=== PATIENT | female | born 1965 | race Caucasian/White ===

== ENCOUNTER 2018-08-10 19:52 | Inpatient (IN) | payer BC, SELFPAY ==
[2018-08-10] MEDS ORDERED: Propofol 1,000 MG/100 ML VIAL IV ONE (20:00)
[2018-08-10] MEDS ORDERED: fentaNYL Citrate/PF 2,000 MCG in Sodium Chloride 0.9% 60 ML IV SCH ×2 (20:02→21:30)
[2018-08-10] MEDS ORDERED: Dexamethasone 10 MG/ML VIAL ONE (20:11)
[2018-08-10 20:20] LABS: #Basophils 0.1 thou/uL (0.0-0.2); #Eosinphils 0.2 thou/uL (0.0-0.7); #Monocytes 0.8 thou/uL (0.11-0.59); #Neutrophils 3.7 thou/uL (1.40-6.50); %Basophils 0.8 % (0.0-1.0); %Eosinophils 2.3 % (0.0-10.0); %Lymphocytes 45.6 % (21.0-51.0); %Monocytes 9.3 % (0.0-10.0); Mean Corpuscular HGB CONC 32.5 g/dL (32.0-36.0); Mean Corpuscular Hemoglobin 29.7 pg (27.0-31.0); Mean Corpuscular Volume 91.6 fL (78.0-98.0); Mean Platelet Volume 8.2 fL (7.4-10.4); Platelet Count 266 thou/uL (130-400); RBC Distribution Width 12.8 % (11.5-14.5); Red Blood Cell (RBC) Count 4.38 mill/uL (4.20-5.40); White Blood Cell (WBC) Count 8.8 thou/uL (4.8-10.8)
--- NOTE | 2018-08-10 20:22 | RAD ---
PORTABLE CHEST: History: 53-year-old female with dyspnea. FINDINGS: Endotracheal tube and NG tubes have been placed in satisfactory location. Heart size is normal. The l ungs are clear. IMPRESSION: NG tube and endotracheal tubes in satisfactory location. No acute intrathoracic disease. POS: [facility]
[2018-08-10 20:29] LABS: Actual Bicarbonate (HCO3a) 21.3 mEq/L (22-28); Analyzer IN Cardio ER; Base Excess (BEa) -7.8 mEq/L (-2.0 to +3.0); CO2 Tension 59.2 mmHg (35.0-45.0); Calcium, Ionized 1.15 mmol/L (1.12-1.30); Carboxyhemoglobin (COHb) 1.2 gm% (0.0-3.0); Hemoglobin (Hb) 13.2 g/dL (12.0-16.0); Potassium - ABG Lab 3.85 mmol/L (3.70-5.30)
[2018-08-10] MEDS ORDERED: Albuterol Sulfate 2.5 mg/3 ml Neb ONE (20:34)
[2018-08-10] MEDS ORDERED: Albuterol Sulfate 2.5 mg/0.5 ml Neb ONE (20:34)
[2018-08-10 20:40] LABS: ALT (SGPT) 48 U/L (8-55); AST (SGOT) 62 U/L (5-34); Albumin 3.5 g/dL (3.5-5.0); Alkaline Phosphatase 123 U/L (40-150); Anion Gap 17 mmol/L (10-20); BUN (Urea Nitrogen) 24 mg/dL (9.8-20.1); Bilirubin, Total 0.3 mg/dL (0.2-1.2); CK (CPK) 185 U/L (29-168); Calc. Creatinine Clearance 0 mL/min (70-130); Calcium 8.6 mg/dL (7.8-10.44); Carbon Dioxide 19 mmol/L (22-29); Chloride 109 mmol/L (98-107); Estimated GFR-MDRD 49; Globulin 2.6 g/dL (2.4-3.5); Lipase 52 U/L (8-78); Potassium 3.9 mmol/L (3.5-5.1); Protein, Total 6.1 g/dL (6.0-8.3); Sodium 141 mmol/L (136-145)
[2018-08-10 20:40] LABS: Bilirubin Negative (Negative); Blood, Urine Negative (Negative); Clarity CLEAR (Clear); Glucose, Urine (Dipstick) Negative (Negative); Leukocyte Negative (Negative); Nitrite Negative (Negative); Protein, Urine (Dipstick) 30 mg/dL (Neg-Trace); Specific Gravity, Urine 1.022 (1.002-1.036); pH, Urine 5.5 (5.0-9.0)
[2018-08-10 20:43] LABS: Bacteria/HPF None Seen HPF (None Seen); Hyaline Casts/LPF 4-6 HYALINE CAST LPF (0-3 Hyaline); Pathc Cast-AUWi Flag 1.16 (0-2.49); RBC/HPF 0-3 HPF (0-3); Squamous Epithelial 0-3 HPF (0-3); WBC/HPF None Seen HPF (0-3)
[2018-08-10 20:44] LABS: Glucose 182 mg/dL (70-105)
[2018-08-10 20:45] LABS: O2 Tension (PaO2) 543.8 mmHg (80.0-100.0); Puncture Site LRA; pH, Arterial 7.17 (7.35-7.45)
[2018-08-10] MEDS ORDERED: CCU Electrolyte Replacement 1 EACH IVPB SCH (21:13)
[2018-08-10] MEDS ORDERED: Norepinephrine 8 MG/0.9% NS 250 ML IVPB PRN (21:13)
[2018-08-10] MEDS ORDERED: Ondansetron ODT 4 MG TAB PO PRN (21:13)
[2018-08-10] MEDS ORDERED: Acetaminophen 650 MG Suppository PR PRN (21:13)
[2018-08-10] MEDS ORDERED: Ondansetron PF 4 MG/2 ML Vial IVP PRN (21:13)
[2018-08-10] MEDS ORDERED: Ventilator Sedation Protocol 1 EACH FS SCH (21:15)
[2018-08-10] MEDS ORDERED: Potassium Phosphate 12 MMOL in Sodium Chloride 0.9% 250 ML 250 ML IV PRN (21:30)
[2018-08-10] MEDS ORDERED: Fentanyl BOLUS 250 ML IVPB PRN (21:30)
[2018-08-10] MEDS ORDERED: DISCONTINUE PREVIOUS NARCOTIC PAIN MEDICATIONS AND BENZODIAZEPINES FS SCH (21:30)
[2018-08-10] MEDS ORDERED: CCU ELECTROLYTE REPLACEMENT PROTOCOL FS PRN (21:30)
[2018-08-10] MEDS ORDERED: Potassium Chloride 20 MEQ TAB PO PRN (21:30)
[2018-08-10] MEDS ORDERED: Potassium Phosphate 15 MMOL in Sodium Chloride 0.9% 250 ML 250 ML IV PRN (21:30)
[2018-08-10] MEDS ORDERED: Potassium Chloride 40 MEQ in Sodium Chloride 0.9% 250 ML 250 ML IVPB PRN (21:30)
[2018-08-10] MEDS ORDERED: Lorazepam 2 MG/ML VIAL SLOW IVP PRN (21:30)
[2018-08-10] MEDS ORDERED: Potassium Chloride 40 MEQ in Premix Bag 1 BAG IVPB PRN (21:30)
[2018-08-10] MEDS ORDERED: Potassium Phosphate 9 MMOL in Sodium Chloride 0.9% 100 ML IVPB PRN (21:30)
[2018-08-10] MEDS ORDERED: Magnesium Oxide 400 MG TAB PO PRN ×2 (21:30)
[2018-08-10] MEDS ORDERED: Magnesium 2 GM/NS 0.9% 100 ML 2 GM in Premix Bag 1 BAG IVPB PRN (21:30)
[2018-08-10] MEDS ORDERED: Propofol BOLUS 1,000 MG/100 ML VIAL IV PRN (21:30)
[2018-08-10] MEDS ORDERED: Morphine 2 MG/ML SYRINGE SLOW IVP PRN (21:30)
[2018-08-10 22:59] VITALS: BMI 36.6
[2018-08-10] MEDS: Albuterol Sulfate 2.5 mg/3 ml Neb NEB SCH (23:44)
[2018-08-10] MEDS: Ipratropium Bromide 2.5 ml Neb NEB SCH (23:45)
[2018-08-11] MEDS: Sodium Chloride 0.9% 1,000 ML IV SCH ×2 (00:05→08:27)
[2018-08-11] MEDS: Propofol 1,000 MG/100 ML VIAL IV PRN ×3 (00:05→07:04)
[2018-08-11 00:22] LABS: Lactic Acid 2.3 mmol/L (0.5-2.2)
[2018-08-11 04:09] LABS: #Lymphocytes 0.2 thou/uL (1.20-3.40); #Neutrophils 4.6 thou/uL (1.40-6.50); %Basophils 0.8 % (0.0-1.0); %Eosinophils 0.2 % (0.0-10.0); %Lymphocytes 4.6 % (21.0-51.0); %Monocytes 0.7 % (0.0-10.0); %Neutrophils 93.7 % (42.0-75.0); Hemoglobin 12.3 g/dL (12.0-16.0); Mean Corpuscular HGB CONC 32.8 g/dL (32.0-36.0); Mean Corpuscular Hemoglobin 29.6 pg (27.0-31.0); Mean Corpuscular Volume 90.1 fL (78.0-98.0); Mean Platelet Volume 8.4 fL (7.4-10.4); Platelet Count 162 thou/uL (130-400); RBC Distribution Width 12.8 % (11.5-14.5); Red Blood Cell (RBC) Count 4.16 mill/uL (4.20-5.40); White Blood Cell (WBC) Count 4.9 thou/uL (4.8-10.8)
[2018-08-11 04:24] LABS: Anion Gap 13 mmol/L (10-20); BUN (Urea Nitrogen) 23 mg/dL (9.8-20.1); Calc. Creatinine Clearance 106 mL/min (70-130); Carbon Dioxide 19 mmol/L (22-29); Chloride 112 mmol/L (98-107); Estimated GFR-MDRD 61; Glucose 183 mg/dL (70-105); Potassium 3.7 mmol/L (3.5-5.1); Sodium 140 mmol/L (136-145)
[2018-08-11] MEDS: Albuterol Sulfate 2.5 mg/3 ml Neb NEB SCH (06:21)
[2018-08-11] MEDS: Ipratropium Bromide 2.5 ml Neb NEB SCH (06:23)
[2018-08-11 06:39] LABS: Base Excess (BEa) -4.3 mEq/L (-2.0 to +3.0); CO2 Tension 34.2 mmHg (35.0-45.0); Calcium, Ionized 1.12 mmol/L (1.12-1.30); Carboxyhemoglobin (COHb) 0.3 gm% (0.0-3.0); Hemoglobin (Hb) 12.6 g/dL (12.0-16.0); O2 Tension (PaO2) 99.8 mmHg (80.0-100.0); Potassium - ABG Lab 3.92 mmol/L (3.70-5.30); pH, Arterial 7.39 (7.35-7.45)
[2018-08-11 07:31] LABS: Puncture Site RRA
--- NOTE | 2018-08-11 07:41 | HP ---
CHIEF COMPLAINT: Shortness of breath. HISTORY OF PRESENT ILLNESS: This is a 53-year-old female with past medical history of asthma, presenting with respiratory failure. Per EMS, the patient was found in a tripod position, and the patient was having difficulty with her breathing, DuoNeb treatments were administered with no relief. The patient was then intubated on the scene, and the patient was brought to our ED to be further evaluated and managed. When the patient arrived in our ED, ET tube was replaced and the patient was then put on the vent and the patient was sent to the ICU. REVIEW OF SYSTEMS: Unable to be obtained since the patient is intubated. PAST MEDICAL HISTORY: Unable to be obtained since the patient is intubated, but it is noted that the patient has history of asthma. FAMILY HISTORY: Unable to be obtained since the patient is intubated. PAST SURGICAL HISTORY: Unable to be obtained since the patient is intubated. PSYCHIATRIC HISTORY: Unable to be obtained since the patient is intubated. SOCIAL HISTORY: Unable to be obtained since the patient is intubated. ALLERGIES: NO KNOWN DRUG ALLERGIES, BUT THE INFORMATION CANNOT BE OBTAINED AT THIS TIME SINCE THE PATIENT IS INTUBATED. CURRENT MEDICATIONS: Unable to be obtained since the patient is intubated. PHYSICAL EXAMINATION: VITAL SIGNS: The patient's blood pressure is 136/85, pulse of 115, respiratory rate of 20, temperature of 97.5, oxygen saturation of 97% on ventilator. GENERAL: The patient is lying in bed, sedated. GCS of 70. HEENT: Normocephalic, atraumatic. Pupils are equally round and reactive to light. The patient does have pinpoint pupils. Mouth; the patient does have an ET tube going through her mouth. NECK: Trachea is midline. No JVD is noted. LUNGS: The patient does have a ventilated lung sound that can be appreciated at the anterior lung estrada. The patient does not have any wheezes noted. CARDIAC: Positive S1 and S2. Tachycardic. ABDOMEN: Soft, nontender, and nondistended. No abdominal masses palpated. EXTREMITIES: Upper extremities, the patient is not able to move upper extremities, but however, has good pulses, and the patient withdraws to pain. For lower extremities, the patient does not have any edema. The patient has good pulses at the dorsalis pedis, and the patient withdraws to pain. NEUROLOGIC: The patient is sedated and intubated. GCS of 70. SKIN: Warm, dry and intact. DIAGNOSTIC DATA: EKG that was done showed sinus tachycardia with a rate of 129. Chest x-ray showed negative for infiltrates or pneumothorax. The patient has an ET tube that is in good position. LABORATORY DATA: WBC is 8.8, hemoglobin is 13.0, hematocrit is 40.2, platelet count is 266. ABGs, pH is 7.17, pCO2 is 69.2, pO2 is 543. Electrolytes; sodium is 141, potassium is 3.9, chloride is 109, carbon dioxide of 19, anion gap of 17, BUN is 24, creatinine is 1.17. Lactic acid of 2.3. Glucose of 182. Creatine kinase is 185. Urinalysis is negative. ASSESSMENT AND PLAN: This is a 53-year-old female being admitted for, 1. Acute respiratory failure secondary to asthma exacerbation. At this point, the patient has been intubated. The patient is getting oxygenation. We will follow up with the patient's ABGs in the a.m. We have consulted Pulmonology. We will also follow up with Pulmonology regarding any further recommendations. We will continue the patient on DuoNeb treatments. 2. Acute renal failure likely due to dehydration. The patient does have a creatinine of 1.17. The patient's baseline is less than 1. At this point, we are going to give the patient gentle hydration. We will follow up morning labs. 3. Deep vein thrombosis/gastrointestinal prophylaxis. Job ID: [id number]
--- NOTE | 2018-08-11 08:15 | RAD ---
PORTABLE CHEST: Date: 08-11-18 Provided Clinical History: Respiratory insufficiency. FINDINGS: Comparison is made with the study dated 08-10-18. Significant interval change with respect to the susana or examination is not apparent. IMPRESSION: As above. POS: [facility]
[2018-08-11] MEDS: Enoxaparin Sodium 40 MG/0.4 ML SYRINGE SC SCH (08:26)
--- NOTE | 2018-08-11 08:50 | RAD ---
CHEST 1 VIEW: Date: 08/10/18 HISTORY: Ventilated patient. COMPARISON: Radiograph from same date. FINDINGS: Patient is intubated with endotracheal tube tip in good position 4.0 cm below the clavicles. Enteric tube tip in good position. Lungs are clear. No pneumothorax or effusion. IMPRESSION: Satisfactory positioning of the endotracheal and enteric tubes. POS: [facility]
[2018-08-11] MEDS ORDERED: Famotidine 20 MG TAB PO SCH (09:00)
[2018-08-11] MEDS ORDERED: Famotidine/PF 20 mg/2ml Vial SLOW IVP SCH (09:00)
[2018-08-11] MEDS ORDERED: predniSONE 20 MG TAB PO SCH (09:30)
[2018-08-11] MEDS ORDERED: Albuterol Sulfate 2.5 mg/3 ml Neb NEB PRN (09:34)
--- NOTE | 2018-08-11 11:55 | PRG ---
DATE OF SERVICE: 08/11/2018 SUBJECTIVE: The patient is seen and examined at bedside. She is in the ICU 7. She is intubated. She is sedated. OBJECTIVE: VITAL SIGNS: Blood pressure is 108/64, pulse is 60, respiratory rate is 20, and O2 saturation is 96%. LUNGS: Minimal wheezes bilaterally with few crackles bilaterally, but she sounds quite clear. HEART: S1 and S2 normal. No S3. No S4. ABDOMEN: Soft, nontender, and nondistended. EXTREMITIES: No clubbing, cyanosis, or edema. NEUROLOGIC: Examination postponed since she is sedated. LABORATORY DATA: Showed white count of 4.9, hemoglobin 12.3, hematocrit 37.5, and platelet count is 162,000. Sodium of 140, potassium 3.7, chloride 112, CO2 of 19, BUN 23, creatinine 0.96, glucose 183, and calcium 8.0. Microbiology, two blood cultures, no growth so far, and influenza type A and B, direct EIA, final results negative. IMPRESSION: 1. Acute respiratory failure secondary to asthma exacerbation, status post intubation, on mechanical ventilation at this point. Supervisor Plate Forming to make decision about her extubation today. For now, we will continue DuoNebs treatments. 2. Acute renal failure, likely due to dehydration, improved. Job ID: [id number]
--- NOTE | 2018-08-11 12:42 | CON ---
DATE OF CONSULTATION: 08/11/2018 SERVICE: Pulmonary Medicine. REASON FOR CONSULTATION: ICU patient, respiratory failure. HISTORY OF PRESENT ILLNESS: The patient is a very pleasant 53-year-old white female with past medical history significant for asthma. She was in her usual state of health until yesterday evening. Her was on his way home from work. He gave her phone call to tell her that he was coming home. At that point, she was not having any breathing difficulty. By the time, he got home 10 to 15 minutes later, EMS services were there, transporting the patient out of the home to the ICU. She had an abrupt onset of respiratory failure. This escalated to the point where she required mechanical intubation. I was told that she had extremely stiff lungs immediately following the procedure. She had hypercapnic and hypoxic respiratory failure. Overnight, she was given steroids and nebulized medications, and opened up very quickly. She does not relate any history of fevers, chills, nausea, vomiting, or sick contacts. She is currently wide awake on mechanical ventilation and is doing fairly well. PAST MEDICAL HISTORY: 1. Asthma. 2. Hypothyroidism. PAST SURGICAL HISTORY: Unknown. SOCIAL HISTORY: Unknown. FAMILY HISTORY: Unknown. ALLERGIES: NO KNOWN DRUG ALLERGIES BASED ON THE 'S RECOLLECTION. MEDICATIONS: List of her inpatient medications was reviewed. Multiple updates were made. REVIEW OF SYSTEMS: This cannot be obtained as the patient is currently intubated and sedated. PHYSICAL EXAMINATION: HEENT: Normocephalic and atraumatic. Sclerae white. Conjunctivae pink. Oral mucosa is moist without lesions. LUNGS: Decent air entry. There is a slightly prolonged expiratory phase, but she is moving fantastic here. There is a little bit of wheezing. I do not appreciate crackles or rhonchi. HEART: Normal rate regular. ABDOMEN: Soft, nontender, and nondistended. Bowel sounds are positive. MUSCULOSKELETAL: No cyanosis or clubbing. There is no pitting in the bilateral lower extremities. NEUROLOGIC: Grossly nonfocal. LABORATORY DATA: WBC 4.9, hemoglobin 12.3, and platelets 162,000. PH 7.39, pCO2 of 34, pO2 of 99, on FiO2 of 40%. Basic metabolic profile is essentially unremarkable other than a chloride of 112, which is up-trending. Bicarbonate is stable at 19 and anion gap has resolved. Original lactate was 4.1, but has improved to 2.3. Liver function studies are unremarkable. Troponin negative x1. Urinalysis is unremarkable. Influenza A and B are unremarkable, blood cultures x2 are negative. IMAGING DATA: Chest x-ray demonstrates no acute cardiopulmonary abnormality. Endotracheal tube is in good position. Enteric catheter courses below the level of the diaphragm. ASSESSMENT: 1. Acute hypercapnic respiratory failure. 2. Asthma with acute exacerbation. 3. Hypothyroidism. DISCUSSION AND PLAN: The patient is doing fine from respiratory standpoint. I will put her on a spontaneous breathing trial. If she meets criteria, extubation will be considered. Pulmonary/Critical Care will continue to follow while she remains in-house. If she extubated comfortably, we will transition most of her interventions over to p.o. and get her out of the ICU to the Medical Unit. We will continue to follow through the weekend. Ultimately, she will need a 14-day course of prednisone. I will have her follow up with me in the outpatient setting. Job ID: [id number]
[2018-08-11] MEDS: Acetaminophen 325 MG TAB PO PRN ×2 (13:50→19:06)
[2018-08-11] MEDS ORDERED: diphenhydrAMINE 50 MG/ML VIAL IVP SCH (14:15)
[2018-08-11] MEDS ORDERED: Metoclopramide HCl 10 MG/2 ML VIAL IVP SCH (14:15)
[2018-08-11] MEDS ORDERED: SUMAtriptan Succinate 25 MG TAB PO SCH (19:45)
[2018-08-12] MEDS: Levothyroxine Sodium 125 MCG TAB PO SCH (05:51)
[2018-08-12] MEDS: Enoxaparin Sodium 40 MG/0.4 ML SYRINGE SC SCH (08:46)
[2018-08-12] MEDS: predniSONE 20 MG TAB PO SCH (08:46)
--- NOTE | 2018-08-12 13:17 | EKG ---
Test Reason : Blood Pressure : / mmHG Vent. Rate : 129 BPM Atrial Rate : 129 BPM P-R Int : 134 ms QRS Dur : 074 ms QT Int : 308 ms P-R-T Axes : 073 045 052 degrees QTc Int : 451 ms Sinus tachycardia Nonspecific ST abnormality Abnormal ECG Confirmed by KALI GARDUNO, BARBARA ([id number]), non linear editor CARIDAD HODGSON ([id number]) on 08/12/2018 1:17:20 PM Referred By: Confirmed By:BARBARA BASS MD
[2018-08-12] MEDS: Benzonatate 100 MG CAP PO PRN ×3 (13:31→23:41)
--- NOTE | 2018-08-12 13:31 | PDOC.PN ---
- Subjective Encounter Start Date: 08/12/18 Encounter Start Time: 13:29 Subjective: feels much better but now has a dry cough -: denies any Chest pain or SOB -: extubated yesterday - Objective Resuscitation Status - Order Detail: 08/10/18 21:13 Resuscitation Status Routine Resuscitation Status: FULL: Full Resuscitation MAR Reviewed: Yes Vital Signs & Weight: Vital Signs (12 hours) Temp Pulse Resp BP Pulse Ox 08/12/18 13:17 86 16 08/12/18 08:00 97.4 F L 63 16 119/74 96 08/12/18 06:50 70 16 08/12/18 04:00 98.0 F 70 16 127/73 97 Weight Weight 213 lb 10.047 oz Most Recent Monitor Data Heart Rate from ECG 79 NIBP 170/109 NIBP BP-Mean 129 Respiration from ECG 16 SpO2 94 I&O: 08/11/18 08/12/18 08/13/18 06:59 06:59 06:59 Intake Total 889.7 2353 Output Total 1105 500 Balance -215.3 1853 Result Diagrams: 08/11/18 03:18 08/11/18 03:18 Additional Labs: Microbiology 08/10/18 21:12 Nasal swab Influenza Types A,B Direct EIA - Final 08/10/18 20:21 Venous blood - Left Hand Blood Culture - Preliminary Specimen has been received and culture in progress. No Growth to date. 08/10/18 20:05 Venous blood - Right Hand Blood Culture - Preliminary Coagulase Neg Staphylococcus Laboratory Tests 08/10/18 08/11/18 08/12/18 20:04 03:18 06:15 Creatinine 1.17 H 0.96 TSH 3rd Generation 0.0964 L Phys Exam - Physical Examination Constitutional: NAD HEENT: PERRLA, moist MMs, sclera anicteric, oral pharynx no lesions Neck: no nodes, no JVD, supple, full ROM Respiratory: no wheezing, no rales, no rhonchi, clear to auscultation bilateral Cardiovascular: RRR, no significant murmur, no rub Gastrointestinal: soft, non-tender, no distention, positive bowel sounds Musculoskeletal: no edema, pulses present Neurological: non-focal, normal sensation, moves all 4 limbs Psychiatric: normal affect, A&O x 3 Skin: no rash Dx/Plan (1) Acute respiratory failure with hypoxia Code(s): J96.01 - ACUTE RESPIRATORY FAILURE WITH HYPOXIA Status: Acute (2) Asthma exacerbation Code(s): J45.901 - UNSPECIFIED ASTHMA WITH (ACUTE) EXACERBATION Status: Acute (3) KIA (acute kidney injury) Code(s): N17.9 - ACUTE KIDNEY FAILURE, UNSPECIFIED Status: Acute (4) Lactic acid acidosis Code(s): E87.2 - ACIDOSIS Status: Acute Comment: Cx pending.Likley due to tissue hypoperfusion from hypoxia.less likley infection (5) Hypothyroid Code(s): E03.9 - HYPOTHYROIDISM, UNSPECIFIED Status: Chronic - Plan incentive spirometry, out of bed/ambulate, DVT proph w/SCDs clinically better & HD stable.on prednisone. -: add tessalon perals. -: monitor untill cleared by [facility]. -: cont levothyroxine * . Review of Systems - Review of Systems Constitutional: negative: fever, chills, sweats, weakness, malaise, other ENT: negative: Ear Pain, Ear Discharge, Nose Pain, Nose Discharge, Nose Congestion, Mouth Pain, Mouth Swelling, Throat Pain, Throat Swelling, Other Respiratory: Cough. negative: Dry, Shortness of Breath, Hemoptysis, SOB with Excertion, Pleuritic Pain, Sputum, Wheezing Cardiovascular: negative: chest pain, palpitations, orthopnea, paroxysmal nocturnal dyspnea, edema, light headedness, other Gastrointestinal: negative: Nausea, Vomiting, Abdominal Pain, Diarrhea, Constipation, Melena, Hematochezia, Other Genitourinary: negative: Dysuria, Frequency, Incontinence, Hematuria, Retention , Other Musculoskeletal: negative: Neck Pain, Shoulder Pain, Arm Pain, Back Pain, Hand Pain, Leg Pain, Foot Pain, Other Neurological: negative: Weakness, Numbness, Incoordination, Change in Speech, Confusion, Seizures, Other - Medications/Allergies Allergies/Adverse Reactions: Allergies Allergy/AdvReac Type Severity Reaction Status Date / Time weed pollen Allergy Verified 08/10/18 22:49 Medications: Current Medications Acetaminophen (Tylenol) 650 mg PO Q4H PRN PRN Reason: Headache/Fever/Mild Pain (1-3) Last Admin: 08/11/18 19:06 Dose: 650 mg Acetaminophen (Tylenol) 650 mg [place] Q4H PRN PRN Reason: Headache/Fever/Mild Pain (1-3) Albuterol Sulfate (Ventolin) 2.5 mg NEB [id number] PRN PRN Reason: Wheezing Albuterol/Ipratropium (Duoneb) 3 ml NEB [id number] [facility] Last Admin: 08/12/18 13:17 Dose: 3 ml Benzonatate (Tessalon) 100 mg PO Q4H PRN PRN Reason: Cough Enoxaparin Sodium (Lovenox) 40 mg SC 0900 [facility] Last Admin: 08/12/18 08:46 Dose: 40 mg Levothyroxine Sodium (Synthroid) 125 mcg PO 0600 [facility] Last Admin: 08/12/18 05:51 Dose: 125 mcg Ondansetron HCl (Zofran Odt) 4 mg PO Q6H PRN PRN Reason: Nausea/Vomiting Prednisone (Prednisone) 20 mg PO QA-[facility] Stop: 08/25/18 08:01 Last Admin: 08/12/18 08:46 Dose: 20 mg Sodium Chloride (Flush - Normal Saline) 10 ml IVF Q12HR PRN PRN Reason: Saline Flush Sodium Chloride (Flush - Normal Saline) 10 ml IVF PRN PRN PRN Reason: Saline Flush
--- NOTE | 2018-08-12 17:02 | PRG ---
DATE OF SERVICE: 08/12/2018 SUBJECTIVE: Ms. Burnette' history has been reviewed. She wants to go home. She was just extubated yesterday. She is familiar with peak flow meters. If so, she is not using one at home. She said she is ready to go home, but the nursing staff tells me that she cannot walk to the bathroom without getting extremely short of breath. I suspect we need more objective measurements of her pulmonary function before allowing her to go home since she required intubation when she came to the hospital. She should stay at least another 24 hours and review her peak flows prior to discharge. Job ID: [id number]
--- NOTE | 2018-08-12 17:12 | PRG ---
DATE OF SERVICE: 08/12/2018 ADDENDUM OBJECTIVE: VITAL SIGNS: Have been stable. She does not have resting tachycardia, arguing for significant improvement. Oximetry is 96% on room air. Respiratory rate 17. LUNGS: Remarkable for end-expiratory wheezes. She is still wheezing. HEART: Regular rhythm. ABDOMEN: Soft. IMPRESSION: Status asthmaticus leading to intubation. PLAN: Peak flow monitoring and re-evaluation for discharge tomorrow. Job ID: [id number]
[2018-08-13] MEDS: Levothyroxine Sodium 125 MCG TAB PO SCH (05:34)
[2018-08-13] MEDS: Enoxaparin Sodium 40 MG/0.4 ML SYRINGE SC SCH (08:09)
[2018-08-13] MEDS: predniSONE 20 MG TAB PO SCH (08:09)
[2018-08-13] MEDS: Acetaminophen 325 MG TAB PO PRN ×2 (08:11→20:19)
--- NOTE | 2018-08-13 11:13 | PDOC.PN ---
- Subjective Encounter Start Date: 08/13/18 Encounter Start Time: 11:11 Subjective: feels wheezy and SOb w walking -: no chest pain - Objective Resuscitation Status - Order Detail: 08/10/18 21:13 Resuscitation Status Routine Resuscitation Status: FULL: Full Resuscitation MAR Reviewed: Yes Vital Signs & Weight: Vital Signs (12 hours) Temp Pulse Resp BP BP Pulse Ox 08/13/18 08:55 97.6 F 63 18 130/73 95 08/13/18 08:06 97.6 F 63 18 130/73 95 08/13/18 08:00 95 08/13/18 07:31 67 16 08/13/18 04:00 98.5 F 62 12 122/76 98 08/13/18 00:54 76 16 95 08/13/18 00:00 98.7 F 67 12 107/62 98 Weight Weight 213 lb 10.047 oz Most Recent Monitor Data Heart Rate from ECG 79 NIBP 170/109 NIBP BP-Mean 129 Respiration from ECG 16 SpO2 94 I&O: 08/12/18 08/13/18 08/14/18 06:59 06:59 06:59 Intake Total 2353 660 Output Total 500 Balance 1853 660 Result Diagrams: 08/11/18 03:18 08/11/18 03:18 Additional Labs: Microbiology 08/10/18 21:12 Nasal swab Influenza Types A,B Direct EIA - Final 08/10/18 20:05 Venous blood - Right Hand Blood Culture - Final Coagulase Neg Staphylococcus 08/10/18 20:21 Venous blood - Left Hand Blood Culture - Preliminary NO GROWTH AT 48 HOURS Phys Exam - Physical Examination Constitutional: NAD HEENT: PERRLA, moist MMs, sclera anicteric, oral pharynx no lesions Neck: no nodes, no JVD, supple, full ROM Respiratory: no rales, no rhonchi, wheezing present Cardiovascular: RRR, no significant murmur Gastrointestinal: soft, non-tender, no distention, positive bowel sounds Musculoskeletal: no edema, pulses present Neurological: non-focal, normal sensation, moves all 4 limbs Psychiatric: normal affect, A&O x 3 Skin: no rash Dx/Plan (1) Asthma exacerbation Code(s): J45.901 - UNSPECIFIED ASTHMA WITH (ACUTE) EXACERBATION Status: Acute (2) Acute respiratory failure with hypoxia Code(s): J96.01 - ACUTE RESPIRATORY FAILURE WITH HYPOXIA Status: Resolved (3) KIA (acute kidney injury) Code(s): N17.9 - ACUTE KIDNEY FAILURE, UNSPECIFIED Status: Resolved (4) Lactic acid acidosis Code(s): E87.2 - ACIDOSIS Status: Acute Comment: Cx pending.Likley due to tissue hypoperfusion from hypoxia.less likley infection (5) Hypothyroid Code(s): E03.9 - HYPOTHYROIDISM, UNSPECIFIED Status: Chronic - Plan respiratory therapy, incentive spirometry, DVT proph w/lovenox, DVT proph w/SCDs pt educated extensively to avoid allergens.Accd to BF ,she has 12 cats -: add singulair.pt reports too expensive to afford even w insurance -: cont nebs.Peak flow measurements still lower than expected range -: encouraged for OP Pulm f/u -: cont nebs. stroids. doesn't seem ready for DC yet again * . Review of Systems - Review of Systems Constitutional: malaise. negative: fever, chills, sweats, weakness, other Respiratory: Cough, SOB with Excertion, Wheezing. negative: Dry, Shortness of Breath, Hemoptysis, Pleuritic Pain, Sputum Cardiovascular: negative: chest pain, palpitations, orthopnea, paroxysmal nocturnal dyspnea, edema, light headedness, other Gastrointestinal: negative: Nausea, Vomiting, Abdominal Pain, Diarrhea, Constipation, Melena, Hematochezia, Other Genitourinary: negative: Dysuria, Frequency, Incontinence, Hematuria, Retention , Other Neurological: negative: Weakness, Numbness, Incoordination, Change in Speech, Confusion, Seizures, Other - Medications/Allergies Allergies/Adverse Reactions: Allergies Allergy/AdvReac Type Severity Reaction Status Date / Time weed pollen Allergy Verified 08/10/18 22:49 Medications: Current Medications Acetaminophen (Tylenol) 650 mg PO Q4H PRN PRN Reason: Headache/Fever/Mild Pain (1-3) Last Admin: 08/13/18 08:11 Dose: 650 mg Acetaminophen (Tylenol) 650 mg MN Q4H PRN PRN Reason: Headache/Fever/Mild Pain (1-3) Albuterol Sulfate (Ventolin) 2.5 mg NEB [id number] PRN PRN Reason: Wheezing Albuterol/Ipratropium (Duoneb) 3 ml NEB [id number] [facility] Last Admin: 08/13/18 07:31 Dose: 3 ml Benzonatate (Tessalon) 100 mg PO Q4H PRN PRN Reason: Cough Last Admin: 08/12/18 23:41 Dose: 100 mg Enoxaparin Sodium (Lovenox) 40 mg SC 0900 [facility] Last Admin: 08/13/18 08:09 Dose: 40 mg Levothyroxine Sodium (Synthroid) 125 mcg PO 0600 [facility] Last Admin: 08/13/18 05:34 Dose: 125 mcg Mometasone Furoate/Formoterol Fumar (Dulera 200 Mcg/5 Mcg Inhaler) 1 puff INH BID-RT [facility] Montelukast Sodium (Singulair) 10 mg PO QPM [facility] Ondansetron HCl (Zofran Odt) 4 mg PO Q6H PRN PRN Reason: Nausea/Vomiting Prednisone (Prednisone) 20 mg PO QAM-WM [facility] Stop: 08/25/18 08:01 Last Admin: 08/13/18 08:09 Dose: 20 mg Sodium Chloride (Flush - Normal Saline) 10 ml IVF Q12HR PRN PRN Reason: Saline Flush Sodium Chloride (Flush - Normal Saline) 10 ml IVF PRN PRN PRN Reason: Saline Flush
[2018-08-13] MEDS ORDERED: predniSONE 20 MG TAB PO SCH (11:33)
[2018-08-13] MEDS ORDERED: Magnesium 2 GM/50 ML 2 GM in Premix Bag 1 BAG IVPB SCH (11:45)
[2018-08-13] MEDS ORDERED: methylPREDNISolone Sod Succ/PF 125 MG/2 ML VIAL IVP SCH (11:45)
[2018-08-13] MEDS: Mometasone/Formoterol 120 PUFF INHALER INH SCH ×2 (13:08→18:59)
[2018-08-13] MEDS ORDERED: Ondansetron PF 4 MG/2 ML Vial IVP PRN (13:22)
--- NOTE | 2018-08-13 14:09 | PRG ---
DATE OF SERVICE: 08/13/2018 SUBJECTIVE: Ms. Burnette's peak flows were only 150 today. Predicted peak flow for her based on age, sex and height is 360, with 80% being 288. She is only a 150 this morning. I have given her 2 g of Mag, another steroid bolus. Singulair was restarted today. She had stopped this as an outpatient. 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 Her lungs are marked for distant wheezes. Heart, regular rhythm. Abdomen is soft. She agreed to stay another day. Hopefully, we will see improvement overnight in her peak flows. Job ID: [id number]
[2018-08-13] MEDS ORDERED: Montelukast Sodium 10 mg Tablet PO SCH (21:00)
[2018-08-14] MEDS ORDERED: Calcium Carbonate 500 MG ChewTAB PO PRN (00:38)
[2018-08-14] MEDS: Levothyroxine Sodium 125 MCG TAB PO SCH (05:58)
[2018-08-14] MEDS: Benzonatate 100 MG CAP PO PRN ×2 (05:59→10:05)
[2018-08-14] MEDS: Mometasone/Formoterol 120 PUFF INHALER INH SCH (06:41)
[2018-08-14] MEDS ORDERED: predniSONE 20 MG TAB PO SCH (08:00)
[2018-08-14 08:02] VITALS: BP 128/70; TEMP 97.6
[2018-08-14] MEDS: Enoxaparin Sodium 40 MG/0.4 ML SYRINGE SC SCH (09:14)
--- NOTE | 2018-08-14 16:23 | PDOC.PN ---
- Subjective Encounter Start Date: 08/14/18 Encounter Start Time: 16:22 Subjective: feels back to baseline and eager to go home -: no SOB/CP.walking in hallways - Objective Resuscitation Status - Order Detail: 08/10/18 21:13 Resuscitation Status Routine Resuscitation Status: FULL: Full Resuscitation MAR Reviewed: Yes Vital Signs & Weight: Vital Signs (12 hours) Temp Pulse Resp BP Pulse Ox 08/14/18 13:39 105 H 18 98 08/14/18 08:00 97.6 F 67 18 128/70 93 L 08/14/18 06:41 68 16 96 08/14/18 06:40 68 16 96 Weight Weight 213 lb 10.047 oz Most Recent Monitor Data Heart Rate from ECG 79 NIBP 170/109 NIBP BP-Mean 129 Respiration from ECG 16 SpO2 94 I&O: 08/13/18 08/14/18 08/15/18 06:59 06:59 06:59 Intake Total 660 820 510 Balance 660 820 510 Result Diagrams: 08/11/18 03:18 08/11/18 03:18 Phys Exam - Physical Examination Constitutional: NAD HEENT: PERRLA, moist MMs, sclera anicteric, oral pharynx no lesions Neck: no nodes, no JVD, supple, full ROM Respiratory: no wheezing, no rales, no rhonchi, clear to auscultation bilateral Cardiovascular: RRR, no significant murmur, no rub Gastrointestinal: soft, non-tender, no distention, positive bowel sounds Musculoskeletal: no edema, pulses present, edema present Neurological: non-focal, normal sensation, moves all 4 limbs Psychiatric: normal affect, A&O x 3 Skin: no rash Dx/Plan (1) Asthma exacerbation Code(s): J45.901 - UNSPECIFIED ASTHMA WITH (ACUTE) EXACERBATION Status: Acute (2) Acute respiratory failure with hypoxia Code(s): J96.01 - ACUTE RESPIRATORY FAILURE WITH HYPOXIA Status: Resolved (3) KIA (acute kidney injury) Code(s): N17.9 - ACUTE KIDNEY FAILURE, UNSPECIFIED Status: Resolved (4) Lactic acid acidosis Code(s): E87.2 - ACIDOSIS Status: Acute Comment: Cx pending.Likley due to tissue hypoperfusion from hypoxia.less likley infection (5) Hypothyroid Code(s): E03.9 - HYPOTHYROIDISM, UNSPECIFIED Status: Chronic - Plan DVT proph w/SCDs ok to DC home on duoneb prn.medrol dose ilya and albuterol -: singulair added -: OP PCCM f/u * . Review of Systems - Review of Systems Constitutional: negative: fever, chills, sweats, weakness, malaise, other ENT: negative: Ear Pain, Ear Discharge, Nose Pain, Nose Discharge, Nose Congestion, Mouth Pain, Mouth Swelling, Throat Pain, Throat Swelling, Other Cardiovascular: negative: chest pain, palpitations, orthopnea, paroxysmal nocturnal dyspnea, edema, light headedness, other Gastrointestinal: negative: Nausea, Vomiting, Abdominal Pain, Diarrhea, Constipation, Melena, Hematochezia, Other Genitourinary: negative: Dysuria, Frequency, Incontinence, Hematuria, Retention , Other Musculoskeletal: negative: Neck Pain, Shoulder Pain, Arm Pain, Back Pain, Hand Pain, Leg Pain, Foot Pain, Other Neurological: negative: Weakness, Numbness, Incoordination, Change in Speech, Confusion, Seizures, Other - Medications/Allergies Allergies/Adverse Reactions: Allergies Allergy/AdvReac Type Severity Reaction Status Date / Time weed pollen Allergy Verified 08/10/18 22:49
== END 2018-08-14 16:17 | disposition home or self-care (01) | DRG 208 ==
LOC: ERS 19:52 → EDBD 19:52 → CCU 21:41 → ONC 08-11 18:35
PROVIDERS: ADMIT Internal Medicine; ATTEND Internal Medicine
PROC: 5A1935Z Respiratory Ventilation, Less than 24 Consecutive Hours (ICD-10-PCS; principal; 2018-08-10)
DX: J96.01 Acute respiratory failure with hypoxia (principal); J45.901 Unspecified asthma with (acute) exacerbation; N17.9 Acute kidney failure, unspecified; E87.2 Acidosis; J96.02 Acute respiratory failure with hypercapnia; E86.0 Dehydration; E03.9 Hypothyroidism, unspecified
CPT/HCPCS: 36415; 71045; 80048; 80053; 81003; 81015; 82550; 82805; 83605; 83690; 84443; 84484; 85025; 87040; 87149; 87804; 93005; 94002; 94003; 94664; J1100; J1200; J1650; J1956; J2704; J2765; J2920; J2930; J3010; J3370; J7050; J7506; J7611; J7620; S0028

== ENCOUNTER 2018-08-25 01:09 | Emergency (ER) | payer BC ==
[2018-08-25 01:52] LABS: Bilirubin Negative (Negative); Blood, Urine Small (Negative); Clarity CLEAR (Clear); Glucose, Urine (Dipstick) Negative (Negative); Leukocyte Small (Negative); Nitrite Negative (Negative); Protein, Urine (Dipstick) Negative (Neg-Trace); Urobilinogen 0.2 mg/dL (0.2-1.0)
[2018-08-25 01:54] LABS: Bacteria/HPF None Seen HPF (None Seen); Hyaline Casts/LPF 0-3 HYALINE CAST LPF (0-3 Hyaline); Pathc Cast-AUWi Flag 0.29 (0-2.49); Squamous Epithelial 0-3 HPF (0-3)
[2018-08-25 02:38] LABS: #Eosinphils 0.1 thou/uL (0.0-0.7); #Lymphocytes 1.6 thou/uL (1.20-3.40); #Monocytes 0.6 thou/uL (0.11-0.59); #Neutrophils 2.4 thou/uL (1.40-6.50); %Basophils 0.8 % (0.0-1.0); %Eosinophils 2.1 % (0.0-10.0); %Lymphocytes 33.5 % (21.0-51.0); %Monocytes 12.7 % (0.0-10.0); %Neutrophils 50.9 % (42.0-75.0); Hemoglobin 12.4 g/dL (12.0-16.0); Mean Corpuscular HGB CONC 33.4 g/dL (32.0-36.0); Mean Corpuscular Hemoglobin 29.9 pg (27.0-31.0); Mean Corpuscular Volume 89.5 fL (78.0-98.0); Mean Platelet Volume 7.6 fL (7.4-10.4); Platelet Count 152 thou/uL (130-400); RBC Distribution Width 12.7 % (11.5-14.5); Red Blood Cell (RBC) Count 4.14 mill/uL (4.20-5.40); White Blood Cell (WBC) Count 4.7 thou/uL (4.8-10.8)
[2018-08-25 03:01] LABS: ALT (SGPT) 18 U/L (8-55); AST (SGOT) 14 U/L (5-34); Albumin 3.5 g/dL (3.5-5.0); Alkaline Phosphatase 71 U/L (40-150); Anion Gap 12 mmol/L (10-20); BUN (Urea Nitrogen) 21 mg/dL (9.8-20.1); Bilirubin, Total 0.3 mg/dL (0.2-1.2); Calc. Creatinine Clearance 0 mL/min (70-130); Calcium 8.8 mg/dL (7.8-10.44); Carbon Dioxide 26 mmol/L (22-29); Chloride 107 mmol/L (98-107); Estimated GFR-MDRD 73; Globulin 2.6 g/dL (2.4-3.5); Glucose 101 mg/dL (70-105); Potassium 3.7 mmol/L (3.5-5.1); Protein, Total 6.1 g/dL (6.0-8.3); Sodium 141 mmol/L (136-145)
[2018-08-25] MEDS ORDERED: Ketorolac Tromethamine 60 MG/2 ML VIAL ONE (03:34)
--- NOTE | 2018-08-25 08:23 | CT ---
PRELIMINARY REPORT/[facility]/EMERGENTY AFTER-HOURS PROCEDURE CT Abdomen and Pelvis With Contrast EXAM DATE/TIME: 08/25/2018 2:45 AM CLINICAL HISTORY: 53 years old, female; Pain; Abdominal pain; Flank; Other: Bilateral; Prior surgery; Patient HX: Er 2; Patient presents to ed with hematuria since kushal and bilateral flank pain. Recently hospitalize d for upper respiratory complaint and patient states that she has had a rincon in place. Patient with history of utis however says that she does not usually get symptoms so she never knows when she has t hem. Denies fever at home. No other symptoms. Surgical history of section, surgical history of hysterectomy. TECHNIQUE: Axial computed tomography images of the abdomen and pelvis with intravenous contrast. Coronal reformatted images were created and reviewed. COMPARISON: No relevant prior studies available. FINDINGS: Lower thorax: The lung bases are clear. Possible very small hiatal hernia. There may be some mucosal/wall thickening involving the lower esophagus. This is nonspecific, but cou ld represent evidence for esophagitis. Please correlate clinically. ABDOMEN: Liver: Unremarkable. Gallbladder and bile ducts: No definite gallbladder abnormality by CT. No biliary tree dilation. Pancreas: Unremarkable. Spleen: The spleen appears mildly enlarged with a length of 13-14 cm. No definite focal abnormality o r perisplenic fluid. Adrenals: Unremarkable. Kidneys and ureters: No hydronephrosis of either kidney. No visible renal or ureteral calculus. No pe rinephric fluid. No visible renal mass. Stomach and bowel: Possibility of slightly thickened mucosa/wall in the distal antrum of the stomach. This is a nonspecific appearance, and could well be transient on CT, but could also represent eviden ce for gastritis or peptic ulcer disease. Please correlate clinically. There are no CT findings to strongly suggest diverticulitis. Appendix: The appendix is visualized and appears normal. PELVIS: Bladder: Urinary bladder appears essentially unremarkable by CT. Reproductive: Prior hysterectomy. ABDOMEN and PELVIS: Intraperitoneal space: No free air, ascites, or bowel distention. No abnormal mass or fluid collection in the pelvis. Bones/joints: No significant acute finding. Soft tissues: No significant acute finding. Vasculature: No evidence for abdominal aortic aneurysm. Lymph nodes: No retroperitoneal adenopathy. IMPRESSION: 1. No hydronephrosis of either kidney. No visible renal or ureteral calculus. No renal mass. 2. No free air or bowel distention. 3. Possible thickened mucosa/wall in the distal stomach, see above discussion. 4. Mild splenomegaly, details above. 5. Normal appendix. 6. Possible very small hiatal hernia. 7. Possibly some thickening of the lower esophagus, see above discussion. 8. Other findings discussed above. Thank you for allowing us to participate in the care of your patient. Dictated and Authenticated by: Fabian Canseco MD 08/25/2018 4:20 AM Central Time ([place] & [place]) FINAL REPORT CT ABDOMEN AND PELVIS WITH IV CONTRAST: Date: 08-25-18 Performed on emergency basis at 0246 hours. History: Abdominal pain. FINDINGS: I agree with the preliminary report by Dr. Canseco from [facility]. Non-distention of the stomac h with villalpando that are slightly thickened. Nonspecific finding. Small hiatal hernia. Code QA. POS: [facility]
== END 2018-08-25 04:49 | disposition home or self-care (01) ==
LOC: ERS 01:09
DX: N30.00 Acute cystitis without hematuria (principal); K29.00 Acute gastritis without bleeding; K20.9 Esophagitis, unspecified; J45.909 Unspecified asthma, uncomplicated; E06.3 Autoimmune thyroiditis; F41.9 Anxiety disorder, unspecified; Z87.891 Personal history of nicotine dependence
CPT/HCPCS: 36415; 74177; 80053; 81003; 81015; 85025; 96372; J1885

== ENCOUNTER 2018-12-18 07:45 | Observation (INO) | payer BC ==
[2018-12-18] MEDS ORDERED: Magnesium 2 GM/50 ML BAG (IN WATER) ONE (08:02)
--- NOTE | 2018-12-18 08:08 | RAD ---
EXAM: CHEST ONE VIEW HISTORY: Cough COMPARISON: 08/11/2018 FINDINGS: The cardiac silhouette and pulmonary vasculature is within normal limits. The lungs are clear. The os seous structures are intact. Endotracheal and nasogastric tubes have been removed when compared to prior study. IMPRESSION: No acute cardiopulmonary process.
[2018-12-18] MEDS ORDERED: Albuterol Sulfate 2.5 mg/0.5 ml Neb ONE (08:20)
[2018-12-18] MEDS ORDERED: Albuterol Sulfate 2.5 mg/3 ml Neb ONE (08:20)
[2018-12-18 08:21] LABS: #Basophils 0.1 thou/uL (0.0-0.2); #Eosinphils 0.3 thou/uL (0.0-0.7); #Lymphocytes 1.6 thou/uL (1.20-3.40); #Monocytes 0.5 thou/uL (0.11-0.59); %Basophils 1.6 % (0.0-1.0); %Eosinophils 6.6 % (0.0-10.0); %Lymphocytes 35.6 % (21.0-51.0); %Monocytes 10.5 % (0.0-10.0); %Neutrophils 45.8 % (42.0-75.0); Hemoglobin 12.7 g/dL (12.0-16.0); Mean Corpuscular HGB CONC 32.8 g/dL (32.0-36.0); Mean Corpuscular Volume 88.4 fL (78.0-98.0); Mean Platelet Volume 8.2 fL (7.4-10.4); Platelet Count 185 thou/uL (130-400); RBC Distribution Width 13.1 % (11.5-14.5); Red Blood Cell (RBC) Count 4.39 mill/uL (4.20-5.40); White Blood Cell (WBC) Count 4.5 thou/uL (4.8-10.8)
[2018-12-18 08:42] LABS: ALT (SGPT) 15 U/L (8-55); AST (SGOT) 15 U/L (5-34); Albumin 3.8 g/dL (3.5-5.0); Alkaline Phosphatase 84 U/L (40-150); Anion Gap 8 mmol/L (10-20); BUN (Urea Nitrogen) 28 mg/dL (9.8-20.1); Bilirubin, Total 0.3 mg/dL (0.2-1.2); Calc. Creatinine Clearance 0 mL/min (70-130); Carbon Dioxide 27 mmol/L (22-29); Chloride 110 mmol/L (98-107); Estimated GFR-MDRD 68; Globulin 2.6 g/dL (2.4-3.5); Glucose 148 mg/dL (70-105); Potassium 3.7 mmol/L (3.5-5.1); Protein, Total 6.4 g/dL (6.0-8.3); Sodium 141 mmol/L (136-145)
[2018-12-18] MEDS ORDERED: Acetaminophen 500 MG TAB ONE (08:45)
[2018-12-18] MEDS ORDERED: Ondansetron PF 4 MG/2 ML Vial IVP PRN (09:45)
[2018-12-18] MEDS ORDERED: Bisacodyl 5 MG TAB PO PRN (09:45)
[2018-12-18] MEDS ORDERED: Bacteriostatic Water 30 ML VIAL FS PRN (10:32)
[2018-12-18 10:41] VITALS: BMI 41.8
--- NOTE | 2018-12-18 11:47 | HP ---
PRIMARY CARE PROVIDER: DR. Jeevan Caldera. CHIEF COMPLAINT: Shortness of breath. HISTORY OF PRESENT ILLNESS: Ms. Burnette is a pleasant 53-year-old lady, who was seen at [facility] on December 18, 2018. She has a history of asthma. 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 Today morning, she started having shortness of breath. The shortness of breath is worse with exertion. She reports wheezing. She reports cough that is nonproductive. She denies any fevers or chills. A couple of days ago, she noticed erythema over the distal aspect of legs bilaterally. She denies any pain or itching sensation at the rash. She denies any nausea or vomiting. She presented to the emergency room because of ongoing shortness of breath and her usual medications were not helping. By the time I saw Ms. Burnette, she reports feeling better. She had received DuoNeb x3, Solu-Medrol, Zofran, and epinephrine from the EMS. In the emergency room, she received albuterol nebulizer and magnesium intravenously. REVIEW OF SYSTEMS: All other systems reviewed and found to be negative. PAST MEDICAL HISTORY: Asthma, Clem disease. I should note that in July 2018, she was intubated for asthma exacerbation. Her day care teacher is Dr. Moreau. SURGICAL HISTORY: Facial surgery, section, hysterectomy. PSYCHIATRIC HISTORY: Anxiety. SOCIAL HISTORY: The patient is a current smoker. FAMILY HISTORY: No family history of asthma. ALLERGIES: NO KNOWN DRUG ALLERGIES. CURRENT MEDICATIONS: 1. Singulair 10 mg daily. 2. Pantoprazole 20 mg daily. 3. DuoNebs. PHYSICAL EXAMINATION: GENERAL: On examination, Ms. Burnette is awake and alert, not in acute distress. She is morbidly obese, with a BMI of 41.9. Blood pressure is 124/82, pulse 81, respiratory rate 22, and oxygen saturation 96% on 2 L. She is afebrile. EYES: No scleral icterus, no conjunctival pallor. ENT: Moist mucosal membranes. No oropharyngeal erythema or exudates. NECK: Supple, nontender. Trachea is midline. RESPIRATORY: Accessory muscles of breathing are mildly active. Chest wall movements are symmetric bilaterally. Lung examination reveals diffuse expiratory wheeze. CARDIOVASCULAR: S1 and S2 are heard, regular. Peripheral pulses palpable. No carotid bruit. No pericardial rub. ABDOMEN: Soft, nontender, bowel sounds are heard. NEUROLOGIC: Cranial nerves 2 through 12 are intact. MUSCULOSKELETAL: Power is 5/5 in all four extremities. SKIN: Small area of rash over both distal lower extremities. It is maculopapular, nontender. LYMPHATIC: No cervical lymphadenopathy. PSYCHIATRIC: Normal mood, normal affect, the patient is oriented to person, place, and time. LABORATORY DATA: Ms. Burnette's labs and investigations were reviewed. I reviewed her electrocardiogram, which shows normal sinus rhythm, no ST changes to suggest acute coronary syndrome. I also reviewed her chest x-ray, which does not show any pulmonary infiltrates. She has leukopenia with 4500 white cells. Hemoglobin and platelet count are normal. She has normal sodium, normal potassium, elevated blood urea nitrogen of 28, normal creatinine and normal liver profile. ASSESSMENT AND PLAN: Ms. Burnette is a pleasant 53-year-old lady, who was seen at [facility] on December 18, 2018. Her problem list includes: 1. Shortness of breath: Most likely secondary to asthma exacerbation. She will be admitted to the hospital for further management. 2. Asthma exacerbation: The patient will be treated with p.r.n. oxygen, inhaled bronchodilators and steroids. Further management depending on how she responds. 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 We will resume once doses clarified. 4. Leukopenia: Mild, we will recheck CBC. Many thanks for allowing me to participate in your patient's care. Please feel free to contact me with any questions or concerns. LEVEL OF RISK: High. LEVEL OF COMPLEXITY: High. Job ID: [id number]
[2018-12-18] MEDS ORDERED: methylPREDNISolone Sod Succ 40 MG VIAL IVP SCH (12:00)
[2018-12-18] MEDS: Acetaminophen 325 MG TAB PO PRN ×2 (13:26→18:43)
[2018-12-18] MEDS: Nicotine 21 MG PATCH TD SCH (13:26)
[2018-12-18] MEDS: methylPREDNISolone Sod Succ 40 MG VIAL IVP SCH ×3 (13:27→23:46)
[2018-12-18] MEDS ORDERED: diphenhydrAMINE 50 MG/ML VIAL IVP PRN (20:58)
[2018-12-18] MEDS ORDERED: Metoclopramide HCl 10 MG/2 ML VIAL IVP PRN (20:59)
[2018-12-18] MEDS ORDERED: Sodium Chloride 0.9% 500 ML IV SCH (21:00)
[2018-12-18] MEDS ORDERED: Ketorolac Tromethamine 30 MG/ML VIAL IVP PRN (23:28)
[2018-12-19] MEDS: methylPREDNISolone Sod Succ 40 MG VIAL IVP SCH ×2 (05:36→11:54)
[2018-12-19 06:42] LABS: #Lymphocytes 0.7 thou/uL (1.20-3.40); #Monocytes 0.2 thou/uL (0.11-0.59); #Neutrophils 10.3 thou/uL (1.40-6.50); %Basophils 0.1 % (0.0-1.0); %Eosinophils 0.1 % (0.0-10.0); %Lymphocytes 6.5 % (21.0-51.0); %Monocytes 1.9 % (0.0-10.0); %Neutrophils 91.3 % (42.0-75.0); Hemoglobin 13.2 g/dL (12.0-16.0); Mean Corpuscular HGB CONC 32.2 g/dL (32.0-36.0); Mean Corpuscular Hemoglobin 28.8 pg (27.0-31.0); Mean Corpuscular Volume 89.5 fL (78.0-98.0); Mean Platelet Volume 8.2 fL (7.4-10.4); Platelet Count 183 thou/uL (130-400); RBC Distribution Width 13.1 % (11.5-14.5); Red Blood Cell (RBC) Count 4.57 mill/uL (4.20-5.40); White Blood Cell (WBC) Count 11.3 thou/uL (4.8-10.8)
[2018-12-19 06:54] LABS: Anion Gap 12 mmol/L (10-20); BUN (Urea Nitrogen) 18 mg/dL (9.8-20.1); Calc. Creatinine Clearance 159 mL/min (70-130); Calcium 8.6 mg/dL (7.8-10.44); Carbon Dioxide 21 mmol/L (22-29); Chloride 109 mmol/L (98-107); Estimated GFR-MDRD 84; Glucose 125 mg/dL (70-105); Potassium 4.4 mmol/L (3.5-5.1); Sodium 138 mmol/L (136-145)
[2018-12-19] MEDS: Nicotine 21 MG PATCH TD SCH (07:39)
[2018-12-19] MEDS ORDERED: Enoxaparin Sodium 40 MG/0.4 ML SYRINGE SC SCH (09:00)
[2018-12-19] MEDS ORDERED: Famotidine 20 MG TAB PO SCH (09:00)
[2018-12-19] MEDS ORDERED: predniSONE 20 MG TAB PO SCH (11:00)
[2018-12-19 12:03] VITALS: BP 112/69; TEMP 98.1
--- NOTE | 2018-12-19 16:24 | DIS ---
DATE OF ADMISSION: 12/18/2018 DATE OF DISCHARGE: 12/19/2018 DISCHARGE DISPOSITION: Home. FOLLOWUP: Follow up with primary care physician, Dr. Caldera in 1 week. ALLERGIES: THE PATIENT IS ALLERGIC TO PENICILLIN AND TRAMADOL. DISCHARGE MEDICATIONS: Prednisone taper. All other home medications were left unchanged. The patient was advised to take Pepcid while on steroids. BRIEF HOSPITAL COURSE: The patient is a 53-year-old female with asthma, who works as a production technician, presented to the hospital with worsening shortness of breath and wheezing. Her workup was consistent with acute asthma exacerbation that improved with IV steroids, nebulizer treatment and oxygen supplementation. Shortness of breath and wheezing have significantly improved. Her chest x-ray on admission was negative for infiltrate. She will continue nebulizer treatment along with oral prednisone taper at home. She was placed on IV steroids during this hospital stay. FINAL DIAGNOSES: 1. Acute asthma exacerbation. 2. Morbid obesity with a body mass index of 41.9. 3. Chronic kidney disease stage 2. 4. Hypothyroidism. 5. Penicillin allergy. 6. Gastroesophageal reflux disease. 7. Tobacco dependence. The patient was advised to quit smoking. PLAN: Plan of care was discussed with the patient in detail. She stated understanding. Job ID: [id number]
== END 2018-12-19 15:37 | disposition home or self-care (01) ==
LOC: ERS 07:45 → T4-A 09:15
PROVIDERS: ADMIT Internal Medicine; ATTEND Internal Medicine
DX: J45.901 Unspecified asthma with (acute) exacerbation (principal); E06.3 Autoimmune thyroiditis; F41.9 Anxiety disorder, unspecified; F17.200 Nicotine dependence, unspecified, uncomplicated; D72.819 Decreased white blood cell count, unspecified; N18.2 Chronic kidney disease, stage 2 (mild); E03.9 Hypothyroidism, unspecified; K21.9 Gastro-esophageal reflux disease without esophagitis; E66.01 Morbid (severe) obesity due to excess calories; Z68.41 Body mass index [BMI] 40.0-44.9, adult; Z79.899 Other long term (current) drug therapy; Z88.0 Allergy status to penicillin; Z88.5 Allergy status to narcotic agent; Z98.890 Other specified postprocedural states
CPT/HCPCS: 36415; 71045; 80048; 80053; 85025; 93005; 94640; 94644; 94760; 96365; 96375; 96376; G0378; J1200; J1650; J1885; J2765; J2920; J3475; J7512; J7611; J7620

== ENCOUNTER 2019-02-14 15:00 | Outpatient (CLI) | payer BC | END 2019-02-14 15:01 | disposition home or self-care (01) | LOC: SLEEPLAB 15:00 | PROVIDERS: ATTEND Internal Medicine | DX: G47.33 Obstructive sleep apnea (adult) (pediatric) (principal); R53.83 Other fatigue; R51 Headache; K21.9 Gastro-esophageal reflux disease without esophagitis; R06.83 Snoring; R35.1 Nocturia; E66.9 Obesity, unspecified; I11.0 Hypertensive heart disease with heart failure; I50.9 Heart failure, unspecified | CPT/HCPCS: 95806 ==

== ENCOUNTER 2019-06-19 13:15 | Outpatient (CLI) | payer BC ==
--- NOTE | 2019-06-20 08:32 | PFT ---
PATIENT HISTORY: HEIGHT: 64.5 WEIGHT: 249 SMOKER: YES HOW LON YRS PACKS PER DAY: .75 PRODUCTIVE COUGH: LUNG DISEASE: PHYSICIAN INTERPRETATION FINAL REPORT: Patient had good effort and good cooperation. She took a PRN medication prior to testing at 11:40 that morning. FVC 3.67 (103%), FEV1 2.23 (80%), FEV1/FVC 0.61. RV 2.39 (133%), TLC 5.78 (108%) DIFFUSION 18.46 (76%) The FEV1 falls within the lower limits of normal, post bronchodilator. The FVC falls within the normal limits. The ratio is consistent with obstructive air flow limitation. There is a significant improvement in the FVC (490 ml, 15%) and the FEV1 (690%, 45%) following the administration of a bronchodilator. The Residual Volume is elevated. The Diffusion Capacity is minimally impaired, but corrects for alveolar ventilation. IMPRESSION: Overall, these pulmonary function studies are consistent with mild obstructive lung disease with profound reversibility, air trapping, and minimum reduction in gas exchange that corrects for alveolar ventilation. Coal Chemist: ELINOR Pulp Piler: ELINOR CANDELARIA
== END 2019-06-19 13:16 | disposition home or self-care (01) ==
LOC: CP 13:15
PROVIDERS: ATTEND Internal Medicine
DX: J45.909 Unspecified asthma, uncomplicated (principal); K21.9 Gastro-esophageal reflux disease without esophagitis; G25.81 Restless legs syndrome
CPT/HCPCS: 94060; 94727; 94729

== ENCOUNTER 2019-08-27 22:33 | Emergency (ER) | payer BC | END 2019-08-28 | disposition home or self-care (01) | LOC: ERS 22:33 | DX: J06.9 Acute upper respiratory infection, unspecified (principal); J45.909 Unspecified asthma, uncomplicated; G43.909 Migraine, unspecified, not intractable, without status migrainosus; F17.200 Nicotine dependence, unspecified, uncomplicated; E06.3 Autoimmune thyroiditis; F41.9 Anxiety disorder, unspecified; Z79.899 Other long term (current) drug therapy | CPT/HCPCS: 87804; 99283 ==

== ENCOUNTER 2019-09-04 19:15 | Emergency (ER) | payer BC ==
[~2019-09-04 19:15] MED LIST: Iopamidol-370 76% 500 ML 1 ML ONE
--- NOTE | 2019-09-04 20:11 | RAD ---
TWO VIEWS CHEST: 09/04/19 PROVIDED CLINICAL HISTORY: Cough. FINDINGS: Comparison 12/18/18. Cardiac and mediastinal silhouette is within normal limits. Lungs appear clear. No pleural fluid or pneumothorax apparent. IMPRESSION: No evidence for an acute cardiopulmonary process. POS: [facility]
[2019-09-04 21:53] LABS: #Basophils 0.1 thou/uL (0.0-0.2); #Eosinphils 0.2 thou/uL (0.0-0.7); #Lymphocytes 1.9 thou/uL (1.20-3.40); #Monocytes 0.7 thou/uL (0.11-0.59); %Basophils 0.7 % (0.0-1.0); %Eosinophils 2.1 % (0.0-10.0); %Lymphocytes 24.6 % (21.0-51.0); %Monocytes 9.3 % (0.0-10.0); %Neutrophils 63.3 % (42.0-75.0); Hemoglobin 14.6 g/dL (12.0-16.0); Mean Corpuscular HGB CONC 32.8 g/dL (32.0-36.0); Mean Corpuscular Hemoglobin 27.9 pg (27.0-31.0); Mean Corpuscular Volume 85.1 fL (78.0-98.0); Mean Platelet Volume 8.3 fL (7.4-10.4); Platelet Count 212 thou/uL (130-400); RBC Distribution Width 13.3 % (11.5-14.5); Red Blood Cell (RBC) Count 5.24 mill/uL (4.20-5.40); White Blood Cell (WBC) Count 7.9 thou/uL (4.8-10.8)
[2019-09-04 22:17] LABS: ALT (SGPT) 16 U/L (8-55); AST (SGOT) 14 U/L (5-34); Albumin 4.3 g/dL (3.5-5.0); Alkaline Phosphatase 110 U/L (40-110); Anion Gap 15 mmol/L (10-20); BUN (Urea Nitrogen) 19 mg/dL (9.8-20.1); Bilirubin, Total 0.4 mg/dL (0.2-1.2); Calc. Creatinine Clearance 0 mL/min (70-130); Calcium 9.5 mg/dL (7.8-10.44); Carbon Dioxide 23 mmol/L (22-29); Chloride 104 mmol/L (98-107); Estimated GFR-MDRD 56; Globulin 3.1 g/dL (2.4-3.5); Glucose 103 mg/dL (70-105); Lipase 24 U/L (8-78); Protein, Total 7.4 g/dL (6.0-8.3); Sodium 138 mmol/L (136-145)
--- NOTE | 2019-09-04 22:51 | CT ---
CT ANGIOGRAM THORAX WITH IV CONTRAST AND 3D RECONSTRUCTIONS: 09/04/19 HISTORY: Chest pain. Patient states dyspnea and cough. COMPARISON: None. FINDINGS: No filling defects are seen in the pulmonary arteries to suggest a pulmonary embolus. The thoracic aorta is normal in caliber without evidence of an aortic dissection. There is a small pericardial effusion present. The mediastinal structures otherwise have a normal appearance, and there is no evidence of lymphadeno gustabo. There is mild atelectasis present in the region of the lingula and right middle lobe. No pulmonary no dule, mass, or consolidation is seen. There is no evidence of a pleural effusion. Mild degenerative changes are seen in the thoracic spine. The visualized upper abdomen demonstrates a normal CT appearance for arterial phase of imaging. IMPRESSION: 1. Small pericardial effusion. 2. No CT evidence of a pulmonary embolus. POS: [facility]
== END 2019-09-05 00:16 | disposition home or self-care (01) ==
LOC: ERS 19:15
DX: R05 Cough (principal); F41.9 Anxiety disorder, unspecified; G43.909 Migraine, unspecified, not intractable, without status migrainosus; Z87.891 Personal history of nicotine dependence; Z79.899 Other long term (current) drug therapy
CPT/HCPCS: 36415; 71046; 71275; 80053; 83690; 84484; 85025; 85379; Q9967

== ENCOUNTER 2021-08-06 13:04 | Outpatient (CLI) | payer BC | END 2021-08-06 13:05 | disposition home or self-care (01) | LOC: DTY/OP 13:04 | PROVIDERS: ATTEND Specialist | DX: Z01.818 Encounter for other preprocedural examination (principal); E66.01 Morbid (severe) obesity due to excess calories; Z71.3 Dietary counseling and surveillance | CPT/HCPCS: 97802 ==

== ENCOUNTER 2022-02-12 09:36 | Outpatient (CLI) | payer BC ==
[2022-02-12 10:42] LABS: #Eosinphils 0.1 10x3/uL (0.0-0.5); #Monocytes 0.5 10x3/uL (0.0-1.1); #Neutrophils 1.6 10x3/uL (1.5-8.4); %Eosinophils 3.6 % (0.0-6.0); %Lymphocytes 39.7 % (18.0-47.0); %Monocytes 13.2 % (0.0-10.0); %Neutrophils 42.2 % (40.0-75.0); Hemoglobin 12.3 g/dL (12.0-15.5); Mean Corpuscular HGB CONC 31.7 g/dL (32.0-36.0); Mean Corpuscular Hemoglobin 26.7 pg (27.0-33.0); Mean Corpuscular Volume 84.2 fl (81.6-98.3); Mean Platelet Volume 10.3 fl (7.4-10.4); Platelet Count 255 10x3/uL (150-450); Red Blood Cell (RBC) Count 4.61 10x6/uL (3.90-5.03); White Blood Cell (WBC) Count 3.9 10x3/uL (3.5-10.5)
[2022-02-12 10:52] LABS: Anion Gap 14 mmol/L (10-20); BUN (Urea Nitrogen) 24 mg/dL (9.8-20.1); Calc. Creatinine Clearance 0 mL/min (70-130); Calcium 9.4 mg/dL (7.8-10.44); Carbon Dioxide 23 mmol/L (22-29); Chloride 107 mmol/L (98-107); Glucose 110 mg/dL (70-105); Sodium 140 mmol/L (136-145)
[2022-02-12 14:30] LABS: Hemoglobin A1c 5.6 % (4.0-6.0)
== END 2022-02-12 09:37 | disposition home or self-care (01) ==
LOC: LABBT 09:36
PROVIDERS: ATTEND Specialist
DX: Z01.812 Encounter for preprocedural laboratory examination (principal); E66.01 Morbid (severe) obesity due to excess calories; G47.33 Obstructive sleep apnea (adult) (pediatric); K21.9 Gastro-esophageal reflux disease without esophagitis; J45.909 Unspecified asthma, uncomplicated; Z20.822 Contact with and (suspected) exposure to COVID-19
CPT/HCPCS: 80048; 83036; 85025; U0003; U0005

== ENCOUNTER 2022-02-12 10:15 | Inpatient (IN) | payer BC ==
[2022-02-17] MEDS ORDERED: cefOXitin 2 GM VIAL ONE (06:07)
[2022-02-17] MEDS ORDERED: Sodium Chloride 0.9% 100 ML ONE (06:07)
[2022-02-17] MEDS ORDERED: Scopolamine 1.5 mg/72 hour Patch ONE (06:07)
[2022-02-17] MEDS ORDERED: Heparin 5,000 UNITS/ML VIAL ONE (06:07)
[2022-02-17] MEDS ORDERED: Acetaminophen 500 MG TAB ONE (06:07)
[2022-02-17] MEDS ORDERED: Ketorolac Tromethamine 30 MG/ML VIAL ONE (06:07)
[2022-02-17] MEDS ORDERED: Lidocaine 1% w/Epinephrine 1:100K 20 ML VIAL ONE (06:51)
[2022-02-17] MEDS ORDERED: Bupivacaine 0.25% HCL 30 ML VIAL ONE (06:51)
[2022-02-17] MEDS ORDERED: Midazolam HCl 2 mg/2 ml Vial ONE ×2 (06:58→07:11)
[2022-02-17] MEDS ORDERED: fentaNYL Citrate/PF 100 MCG/2 ML SYRINGE ONE (06:58)
[2022-02-17] MEDS ORDERED: HYDROmorphone 2 MG/ML VIAL ONE (06:59)
[2022-02-17] MEDS ORDERED: Famotidine/PF 20 mg/2ml Vial ONE (07:11)
[2022-02-17] MEDS ORDERED: Propofol 500 MG/50 ML VIAL ONE (07:17)
[2022-02-17] MEDS ORDERED: Meperidine HCl/PF 25 MG/ML VIAL SLOW IVP PRN (10:12)
[2022-02-17] MEDS ORDERED: Promethazine HCl 25 MG/ML VIAL IVPB PRN (10:12)
[2022-02-17] MEDS ORDERED: HYDROmorphone 2 MG/ML VIAL SLOW IVP PRN (10:12)
[2022-02-17] MEDS ORDERED: Promethazine HCl 25 MG/ML VIAL IM PRN (10:19)
[2022-02-17] MEDS ORDERED: diphenhydrAMINE 50 MG/ML VIAL IVP PRN (10:19)
[2022-02-17] MEDS ORDERED: hydrALAZINE 20 MG/ML VIAL SLOW IVP PRN (10:19)
[2022-02-17] MEDS ORDERED: Ondansetron PF 4 MG/2 ML Vial ONE (10:19)
[2022-02-17] MEDS ORDERED: Morphine 4 MG/ML VIAL SLOW IVP PRN (10:19)
[2022-02-17] MEDS ORDERED: Morphine 2 MG/ML VIAL SLOW IVP PRN (10:19)
[2022-02-17] MEDS ORDERED: Ondansetron PF 4 MG/2 ML Vial IVP PRN (10:19)
[2022-02-17] MEDS ORDERED: Fentanyl 100 MCG/2 ML VIAL ONE (10:22)
[2022-02-17] MEDS ORDERED: Albuterol Sulfate 2.5 mg/3 ml Neb NEB PRN ×2 (10:22→10:50)
[2022-02-17] MEDS ORDERED: Non-Formulary Item 1 EACH (Albuterol Sulfate Hfa (Or) 200 PUFF Inh) INH PRN (10:22)
[2022-02-17] MEDS ORDERED: ceFAZolin 2 GM/Dextrose 50 ML 2 GM in Premix Bag 1 BAG IVPB SCH (10:30)
[2022-02-17 12:17] VITALS: BMI 47.8
[2022-02-17] MEDS: Ketorolac Tromethamine 30 MG/ML VIAL IVP SCH ×3 (12:27→23:32)
[2022-02-17] MEDS: D5 1/2 NS w/20 mEq KCL 1,000 ML IV SCH ×2 (12:27→17:37)
[2022-02-17] MEDS: CEFAZOLIN 2 GM in Sodium Chloride 0.9% 100 ML IVPB SCH ×2 (14:31→21:08)
[2022-02-17] MEDS: Hydrocodone-Acetamin 15 ML UDCUP PO PRN ×2 (14:40→21:04)
[2022-02-17] MEDS: Mometasone 200 MCG/Formoterol 5 MCG 120 PUFF INHALER INH SCH (20:27)
[2022-02-17] MEDS ORDERED: Enoxaparin Sodium 40 MG/0.4 ML SYRINGE SC SCH (21:00)
[2022-02-18 04:55] LABS: #Lymphocytes 0.8 thou/uL (1.20-3.40); #Monocytes 0.8 thou/uL (0.11-0.59); #Neutrophils 6.9 thou/uL (1.40-6.50); %Basophils 0.2 % (0.0-1.0); %Eosinophils 0.1 % (0.0-10.0); %Lymphocytes 9.5 % (21.0-51.0); %Monocytes 9.1 % (0.0-10.0); %Neutrophils 81.1 % (42.0-75.0); Mean Corpuscular Hemoglobin 27.8 pg (27.0-31.0); Mean Corpuscular Volume 86.8 fL (78.0-98.0); Mean Platelet Volume 7.8 fL (7.4-10.4); Platelet Count 278 thou/uL (130-400); RBC Distribution Width 14.4 % (11.5-14.5); White Blood Cell (WBC) Count 8.5 thou/uL (4.8-10.8)
[2022-02-18 05:17] LABS: Anion Gap 12 mmol/L (10-20); BUN (Urea Nitrogen) 9 mg/dL (9.8-20.1); Calc. Creatinine Clearance 132 mL/min (70-130); Calcium 8.2 mg/dL (7.8-10.44); Carbon Dioxide 22 mmol/L (22-29); Chloride 107 mmol/L (98-107); Glucose 137 mg/dL (70-105); Potassium 4.4 mmol/L (3.5-5.1); Sodium 137 mmol/L (136-145)
[2022-02-18] MEDS: Ketorolac Tromethamine 30 MG/ML VIAL IVP SCH ×2 (05:21→12:31)
[2022-02-18] MEDS: Hydrocodone-Acetamin 15 ML UDCUP PO PRN ×4 (05:21→17:14)
[2022-02-18] MEDS: D5 1/2 NS w/20 mEq KCL 1,000 ML IV SCH ×2 (05:21→08:07)
[2022-02-18] MEDS: Mometasone 200 MCG/Formoterol 5 MCG 120 PUFF INHALER INH SCH (07:10)
[2022-02-18] MEDS ORDERED: buPROPion 75 MG TAB PO SCH (09:00)
[2022-02-18] MEDS ORDERED: Levothyroxine Sodium 125 MCG TAB PO SCH (09:00)
[2022-02-18] MEDS ORDERED: Non-Formulary Item 1 EACH (Fluticasone/Vilanterol [Breo Ellipta 200-25 Mcg Inh] 1 EACH Bl IH SCH (09:00)
[2022-02-18] MEDS ORDERED: Pantoprazole 40 MG VIAL IVP SCH (09:00)
[2022-02-18] MEDS ORDERED: Non-Formulary Item 1 EACH (Tiotropium Bromide [Spiriva] 18 MCG Cap.W.Dev) INH SCH (09:00)
[2022-02-18] MEDS ORDERED: Cepastat Lozenges 1 LOZ PO PRN (10:45)
[2022-02-18 15:22] VITALS: BP 124/76
[2022-02-18 16:54] VITALS: TEMP 97.8
== END 2022-02-18 17:15 | disposition home or self-care (01) | DRG 621 ==
LOC: SURG A 02-17 05:43 → SURG B 02-17 11:57
PROVIDERS: ADMIT Specialist; ATTEND Specialist
PROC: 0D164ZA Bypass Stomach to Jejunum, Percutaneous Endoscopic Approach (ICD-10-PCS; principal; 2022-02-17)
DX: E66.01 Morbid (severe) obesity due to excess calories (principal); Z68.42 Body mass index [BMI] 45.0-49.9, adult; G47.30 Sleep apnea, unspecified; Z91.048 Other nonmedicinal substance allergy status; Z91.040 Latex allergy status; Z88.0 Allergy status to penicillin; Z88.8 Allergy status to other drugs, medicaments and biological substances
CPT/HCPCS: 36415; 80048; 85025; 94640; A4649; C1713; C1889; C9113; J0690; J0694; J1170; J1644; J1650; J1885; J2250; J2405; J2704; J3010; J3480; J3490; J7620; S0020; S0028